=== PATIENT | female | born 1995 | race Caucasian/White ===

== ENCOUNTER → 2020-05-20 13:45 | Outpatient (CLI) | payer OTHER, SELFPAY ==
--- NOTE | ~2020-05-20 | US_ITS ---
EXAMINATION: US OB <= 14 weeks fetus DATE: 05/20/2020 14:09 INDICATION: Encounter for supervision of normal at the junction of the first and second tri mester of . Establish dating and viability of . TECHNIQUE: Real-time pelvic ultrasound utilizing both a transvaginal and transabdominal probe was pe rformed. The interpreting radiologist was not present for the study. COMPARISON: None. FINDINGS: The uterus measures 13.4 x 7.3 x 7.2 cm. There is an intrauterine gestational sac. A yolk sac and fe betty pole are identified. The crown rump length measures 5.5 cm, which correlates with an estimated ge stational age of 12 weeks and 0 days. heart motion is identified measuring 163 beats per minute (bpm) by M-mode Doppler. The right ovary measures 2.7 x 2.0 x 2.7 cm with 1.3 cm anechoic right ovarian cyst/follicle. The lef t ovary is not visualized. There is no free fluid in the pelvis. IMPRESSION: 1. Single living fetus with heart rate of 163 bpm. 2. Gestational age by ultrasound of 12 weeks 0 day(s) +/- 1 week and 1 day with ultrasound estimated date of delivery ([facility]ERRY) of 12/02/2020. Reviewed, dictated and finalized at location B. IMPRESSION: 1. Single living fetus with heart rate of 163 bpm. 2. Gestational age by ultrasound of 12 weeks 0 day(s) +/- 1 week and 1 day wit h ultrasound estimated date of delivery (CHERRY) of 12/02/2020.
== END ==
PROVIDERS: Visit Provider Obstetrics & Gynecology
DX: Z34.90 Encounter for supervision of normal pregnancy, unspecified, unspecified trimester (principal); Z3A.12 12 weeks gestation of pregnancy
CPT/HCPCS: 76801